=== PATIENT | male | born 1940 | race Caucasian/White ===

== ENCOUNTER 2022-02-12 12:35 | Emergency (ER) | payer MEDICARE, BC ==
--- NOTE | 2022-02-12 12:40 | ERPHSYRPT ---
- History of Present Illness Time Seen by Provider: 02/12/22 12:40 Source: patient Exam Limitations: no limitations Physician History: This is a 81-year-old white male patient of Dr. Cheatham who presents with 5-day history of cough, sore throat and phlegm. He is diabetic. Patient denies chest pain. He denies shortness of breath. He denies abdominal pain. He has had no nausea vomiting or diarrhea. He does present with a temperature of 103.1 F. He has not been exposed to any individuals that he is aware of that have similar symptoms or flulike symptoms. Timing/Duration: day(s) (5) Cough Quality/Degree: mild, productive cough Possible Cause: occasional episodes (Yellow phlegm) Modifying Factors: Improves With: activity Associated Symptoms: fever, cough, sore throat Allergies/Adverse Reactions: Tetracyclines Allergy (Verified 02/12/22 12:53) Travel Risk - International Travel Have you traveled outside of the country in past 3 weeks: No - Coronavirus Screening Are you exhibiting any of the following symptoms?: Yes Symptoms: Fever, Cough: New Onset Close contact with a COVID-19 positive Pt in past 14-21 Days: No - Review of Systems Constitutional: Fever Eyes: No Symptoms Ears, Nose, & Throat: No Symptoms Respiratory: Cough Cardiac: No Symptoms Abdominal/Gastrointestinal: No Symptoms Genitourinary Symptoms: No Symptoms Musculoskeletal: No Symptoms Skin: No Symptoms Neurological: No Symptoms Psychological: No Symptoms Endocrine: No Symptoms Hematologic/Lymphatic: No Symptoms Immunological/Allergic: No Symptoms All Other Systems: Reviewed and Negative - Past Medical History Neurological History: No Pertinent History Cardiac History: No Pertinent History Respiratory History: No Pertinent History Endocrine Medical History: Diabetes Type II Musculoskeletal History: No Pertinent History - Nursing Vital Signs Nursing Vital Signs: Initial Vital Signs Temperature 103.1 F 02/12/22 12:56 Pulse Rate 118 H 02/12/22 12:56 Respiratory Rate 18 02/12/22 12:56 Blood Pressure 147/88 02/12/22 12:56 O2 Sat by Pulse Oximetry 94 L 02/12/22 12:56 Pain Scale Pain Intensity 0 - Physical Exam General Appearance: no apparent distress, alert Eye Exam: PERRL/EOMI, eyes nml inspection Ears, Nose, Throat Exam: normal ENT inspection, moist mucous membranes Neck Exam: normal inspection, non-tender, supple, full range of motion Respiratory Exam: normal breath sounds, lungs clear, airway intact, No chest tenderness, No respiratory distress Cardiovascular Exam: tachycardia Gastrointestinal/Abdomen Exam: soft, normal bowel sounds, No tenderness Rectal Exam: not done Back Exam: normal inspection, normal range of motion, No CVA tenderness, No vertebral tenderness Extremity Exam: normal inspection, normal range of motion, pelvis stable Neurologic Exam: alert, oriented x 3, cooperative, lockstitch lining setter II-XII nml as tested, normal mood/affect, nml cerebellar function, nml station & gait, sensation nml Skin Exam: normal color, warm, dry Lymphatic Exam: No adenopathy SpO2 Interpretation: borderline oxygenation O2 Delivery: Room Air - Course Nursing assessment & vital signs reviewed: Yes Ordered Tests: Active Orders 24 hr Category Date Time Status Oil Well Service Operator STAT Care 02/12/22 13:46 Active IV Insertion STAT Care 02/12/22 13:45 Active Pulse Oximetry (ED) STAT Care 02/12/22 13:45 Active CHEST 1 VIEW (PORTABLE) Stat Exams 02/12/22 13:15 Completed BLOOD CULTURE Stat Lab 02/12/22 14:40 Received CBC W DIFF Stat Lab 02/12/22 14:10 Completed CMP Stat Lab 02/12/22 14:10 Completed Lactic Acid Stat Lab 02/12/22 13:45 Completed Holt Screen Stat Lab 02/12/22 14:10 Received Medication Summary Generic Name Dose Route Start Last Admin Trade Name Freq PRN Reason Stop Dose Admin Sodium Chloride 1,000 mls @ 100 mls/hr 02/12/22 13:45 02/12/22 13:53 Sodium Chloride 0.9% 1000 Ml IV 03/14/22 13:44 100 mls/hr .Q10H QIAN Administration Discontinued Medications Generic Name Dose Route Start Last Admin Trade Name Freq PRN Reason Stop Dose Admin Acetaminophen 650 mg 02/12/22 13:45 02/12/22 13:53 Acetaminophen 325 Mg Tablet PO 02/12/22 13:46 650 mg STAT STA Administration Acetaminophen Confirm 02/12/22 13:51 Acetaminophen 325 Mg Tablet Administered 02/12/22 13:52 Dose 975 mg .ROUTE .STK-MED ONE Hydrocodone Bitart/Acetaminophen 10 ml 02/12/22 14:00 02/12/22 14:22 Hydrocodone/Acetaminophen 5 Ml Udcup PO 02/12/22 14:01 10 ml STAT STA Administration Hydrocodone Bitart/Acetaminophen Confirm 02/12/22 14:21 Hydrocodone/Acetaminophen 5 Ml Udcup Administered 02/12/22 14:22 Dose 10 ml .ROUTE .STK-MED ONE Methylprednisolone Sodium 0 mg 02/12/22 14:02 02/12/22 14:22 Succinate 125 mg/ Sterile IV 02/12/22 14:03 125 mg Water 2 ml STAT ONE Administration Methylprednisolone Sodium Succinate Confirm 02/12/22 14:22 Methylprednis Sod Succ 125 Mg/2 Ml Vial Administered 02/12/22 14:23 Dose 125 mg .ROUTE .STK-MED ONE Lab/Rad Data: Laboratory Result Diagrams 02/12/22 14:10 02/12/22 14:10 Laboratory Results 02/12/22 02/12/22 02/12/22 Range/Units 14:30 14:10 14:10 WBC 8.6 (4.0-10.5) K/mm3 RBC 3.85 L (4.1-5.6) M/mm3 Hgb 12.0 L (12.5-18.0) gm/dl Hct 37.4 L (42-50) % MCV 97.1 (78-100) fl MCH 31.2 (26-32) pg MCHC 32.1 (32-36) g/dl RDW 14.3 H (11.5-14.0) % Plt Count 272 (150-450) K/mm3 MPV 9.4 (7.5-11.0) fl Gran % 80.5 H (36.0-66.0) % Eos # (Auto) 0.05 (0-0.5) Absolute Lymphs (auto) 0.86 L (1.0-4.6) Absolute Monos (auto) 0.72 (0.0-1.3) Lymphocytes % 10.0 L (24.0-44.0) % Monocytes % 8.4 (0.0-12.0) % Eosinophils % 0.6 (0.00-5.0) % Basophils % 0.5 (0.0-0.4) % Absolute Granulocytes 6.95 H (1.4-6.9) Basophils # 0.04 (0-0.4) Sodium 139 (137-145) mmol/L Potassium 4.3 (3.5-5.1) mmol/L Chloride 104 (98-107) mmol/L Carbon Dioxide 23 (22-30) mmol/L Anion Gap 15.8 H (5-15) MEQ/L BUN 16 (9-20) mg/dL Creatinine 1.22 (0.66-1.25) mg/dL Estimated GFR > 60.0 ML/MIN Glucose 126 H (74-106) mg/dL Lactic Acid (0.4-2.0) Calcium 9.6 (8.4-10.2) mg/dL Total Bilirubin 0.90 (0.2-1.3) mg/dL AST 39 (17-59) U/L ALT 32 (0-50) U/L Alkaline Phosphatase 63 (38-126) U/L Serum Total Protein 6.8 (6.3-8.2) g/dL Albumin 3.9 (3.5-5.0) g/dL Influenza Type A Ag (NEGATIVE) Influenza Type B Ag (NEGATIVE) RSV (PCR) (Negative) SARS-CoV-2 (PCR) (NEGATIVE) Group A Strep Antibody NOT DETECTED (NEGATIVE) 02/12/22 02/12/22 Range/Units 13:45 13:30 WBC (4.0-10.5) K/mm3 RBC (4.1-5.6) M/mm3 Hgb (12.5-18.0) gm/dl Hct (42-50) % MCV (78-100) fl MCH (26-32) pg MCHC (32-36) g/dl RDW (11.5-14.0) % Plt Count (150-450) K/mm3 MPV (7.5-11.0) fl Gran % (36.0-66.0) % Eos # (Auto) (0-0.5) Absolute Lymphs (auto) (1.0-4.6) Absolute Monos (auto) (0.0-1.3) Lymphocytes % (24.0-44.0) % Monocytes % (0.0-12.0) % Eosinophils % (0.00-5.0) % Basophils % (0.0-0.4) % Absolute Granulocytes (1.4-6.9) Basophils # (0-0.4) Sodium (137-145) mmol/L Potassium (3.5-5.1) mmol/L Chloride (98-107) mmol/L Carbon Dioxide (22-30) mmol/L Anion Gap (5-15) MEQ/L BUN (9-20) mg/dL Creatinine (0.66-1.25) mg/dL Estimated GFR ML/MIN Glucose (74-106) mg/dL Lactic Acid 1.4 (0.4-2.0) Calcium (8.4-10.2) mg/dL Total Bilirubin (0.2-1.3) mg/dL AST (17-59) U/L ALT (0-50) U/L Alkaline Phosphatase (38-126) U/L Serum Total Protein (6.3-8.2) g/dL Albumin (3.5-5.0) g/dL Influenza Type A Ag NEGATIVE (NEGATIVE) Influenza Type B Ag NEGATIVE (NEGATIVE) RSV (PCR) NEGATIVE (Negative) SARS-CoV-2 (PCR) NEGATIVE (NEGATIVE) Group A Strep Antibody (NEGATIVE) - Progress Air Movement: good Progress Note: 02/12/22 13:44 Chest x-ray shows no acute cardiopulmonary process. Counseled pt/family regarding: lab results, diagnosis, need for follow-up, rad results - Departure Departure Disposition: Home Clinical Impression: Pharyngitis, Bronchitis Condition: Stable Critical Care Time: No Referrals: JENNIFER CHEATHAM MD [Primary Care Provider] - Follow up/PCP as directed Additional Instructions: Drink plenty of fluids. Take your medication as prescribed. Follow-up with your primary prescribing physician for further management. Prescriptions: Hydrocodone/Acetaminophen [Hydrocodone-Acetamn 7.5-325/15] 10 ml PO Q8H PRN PRN #120 ml MDD 30 ml PRN Reason: Cough Prednisone 10 mg [Deltasone 10 mg] 10 mg PO TID #12 tablet Azithromycin 250 mg [Zithromax 250 MG TABLET] 250 mg PO ZPACK #6 tablet
--- NOTE | 2022-02-12 13:37 | XRAY ---
Indication: Productive cough. Comparison: January 03, 2022. Portable apical lordotic chest unchanged again demonstrating minimal left base atelectasis/scarring. Remaining heart and lungs unremarkable. No new/acute findings.
[2022-02-12] MEDS ORDERED: TYLENOL 325 MG PO STA (13:45)
[2022-02-12] MEDS ORDERED: Sodium Chloride 0.9% 1000 ML 1,000 ML IV SCH (13:45)
[2022-02-12] MEDS ORDERED: TYLENOL 325 MG ONE (13:51)
[2022-02-12] MEDS ORDERED: Sodium Chloride 0.9% 1000 ML 1,000 ML ONE (13:51)
[2022-02-12] MEDS ORDERED: HYDROCODONE-ACETAMIN 2.5-108/5 ML SOLUTION PO STA (14:00)
[2022-02-12] MEDS ORDERED: solu-MEDROL 125 MG, Sterile H2O 10 ml 2 ML IV ONE ×2 (14:02)
[2022-02-12 14:10] LABS: INFLUENZA A NEGATIVE (NEGATIVE); INFLUENZA B NEGATIVE (NEGATIVE); RESPIRATORY SYNCTIAL VIRUS NEGATIVE (Negative); SARS-CoV-2 Xpert Express NEGATIVE (NEGATIVE)
[2022-02-12] MEDS ORDERED: HYDROCODONE-ACETAMIN 2.5-108/5 ML SOLUTION ONE (14:21)
[2022-02-12 14:22] LABS: Absolute Neutrophil Ct (ANC) 6.95 (1.4-6.9); Basophil (Absolute #) 0.04 (0-0.4); Eosinophil % 0.6 % (0.00-5.0); Eosinophil (Absolute #) 0.05 (0-0.5); Hematocrit 37.4 % (42-50); Lymphocyte (Absolute #) 0.86 (1.0-4.6); Mean Cell Volume 97.1 fl (78-100); Mean Corpuscular Hemoglobin 31.2 pg (26-32); Mean Corpuscular Hgb Concent. 32.1 g/dl (32-36); Mean Platelet Volume 9.4 fl (7.5-11.0); Monocyte (Absolute #) 0.72 (0.0-1.3); Monocytes % 8.4 % (0.0-12.0); Neutrophil % 80.5 % (36.0-66.0); Platelet Count 272 K/mm3 (150-450); Red Blood Count 3.85 M/mm3 (4.1-5.6); Red Cell Distribution Width 14.3 % (11.5-14.0); White Blood Count 8.6 K/mm3 (4.0-10.5)
[2022-02-12] MEDS ORDERED: solu-MEDROL ONE (14:22)
[2022-02-12 14:32] LABS: ALBUMIN 3.9 g/dL (3.5-5.0); ALKALINE PHOSPHATASE 63 U/L (38-126); ANION GAP 15.8 MEQ/L (5-15); BLOOD UREA NITROGEN 16 mg/dL (9-20); CHLORIDE 104 mmol/L (98-107); Calcium 9.6 mg/dL (8.4-10.2); Carbon Dioxide 23 mmol/L (22-30); Creatinine 1 1.22 mg/dL (0.66-1.25); EST GLOMERULAR FILTRATION RATE > 60.0 ML/MIN; Glucose 126 mg/dL (74-106); Potassium 4.3 mmol/L (3.5-5.1); SGOT/AST 39 U/L (17-59); SGPT/ALT 32 U/L (0-50); SODIUM 139 mmol/L (137-145); Total Protein 6.8 g/dL (6.3-8.2)
[2022-02-12] MEDS ORDERED: ROCEPHIN 1 Gm-D5w 50 ml Bag** 1 G/50 ML IVPB IV STA (15:41)
[2022-02-12] MEDS ORDERED: ROCEPHIN 1 Gm-D5w 50 ml Bag** 1 G/50 ML IVPB IV ONE (15:56)
[2022-02-12 16:12] VITALS: BP 121/67; PULSE 78; O2SAT 98
== END 2022-02-12 16:12 | disposition home or self-care (01) ==
LOC: ED 12:35
DX: J40 Bronchitis, not specified as acute or chronic (principal); J02.9 Acute pharyngitis, unspecified; R05.1 Acute cough; R50.9 Fever, unspecified; E11.9 Type 2 diabetes mellitus without complications; Z79.891 Long term (current) use of opiate analgesic; Z79.52 Long term (current) use of systemic steroids
CPT/HCPCS: 0241U; 36000; 36415; 71045; 80053; 83605; 85025; 86308; 87040; 87651; 93041; 94760; 96365; 96374; 99284; J0696; J2930; A9270-GY

== ENCOUNTER 2023-12-02 07:27 | Day surgery (SDC) | payer MEDICARE, BC ==
[2023-12-02] MEDS ORDERED: Depo-Medrol 40 MG/ML IM ONE (07:28)
[2023-12-02] MEDS ORDERED: XYLOCAINE-MPF 1% 5ML SDV IJ ONE (07:28)
[2023-12-02] MEDS ORDERED: Sodium Chloride 0.9(Preservative Free) 10 ML IJ ONE (07:28)
[2023-12-02] MEDS ORDERED: DIPRIVAN 200 MG/20 ML IV ONE (09:02)
[2023-12-02] MEDS ORDERED: Lactated Ringers 1,000 ML IV ONE (09:34)
--- NOTE | 2023-12-02 11:28 | XRAY ---
Indication: Lumbar GERRY. Intraoperative fluoroscopy provided for 24 seconds. 2 digital spot images submitted for interpretation demonstrates posterior needle tip projecting posterior to lumbosacral junction interspace. Small amount of contrast injected for needle tip placement. Correlate with intraoperative findings/report.
--- NOTE | 2023-12-02 11:46 | XRAY ---
24 seconds of fluoroscopy was used in surgery for a lumbar GERRY.
== END 2023-12-02 09:31 | disposition home or self-care (01) ==
LOC: SDC-PAIN 07:27
PROVIDERS: ATTEND Psychiatry & Neurology Pain Medicine
DX: M54.16 Radiculopathy, lumbar region (principal); E11.9 Type 2 diabetes mellitus without complications
CPT/HCPCS: 62321; 72100; 77003; 82947; J1030; J2704; Q9966

== ENCOUNTER 2024-10-22 10:02 | Emergency (ER) | payer MEDICARE, BC ==
[2024-10-22 11:39] VITALS: RESP 18; TEMP 98.4
--- NOTE | 2024-10-22 12:52 | ERPHSYRPT ---
- History of Present Illness Time Seen by Provider: 10/22/24 10:41 Source: patient, family Exam Limitations: no limitations Patient Subjective Stated Complaint: . Triage Nursing Assessment: . Physician History: 84 years old male fairly healthy taking aspirin off and on, issues with balance presented in the ER when he tripped, lost his balance and hit the edge of the table earlier today. Patient reports increased swelling on the medial side of left lower leg and hurts to put pressure. No distal numbness tingling or weakness. No difficulty movements of ankle/foot. Not taking any blood thinners.No injury anywhere else. No skin break. Allergies/Adverse Reactions: Tetracyclines Allergy (Verified 10/22/24 11:37) Hx Influenza Vaccination/Date Given: No Hx Pneumococcal Vaccination/Date Given: Yes Travel Risk - International Travel Have you traveled outside of the country in past 3 weeks: No - Emerging Infectious Disease Are you exhibiting symptoms associated with any current EIDs: No - Review of Systems Constitutional: No Symptoms Ears, Nose, & Throat: No Symptoms Respiratory: No Symptoms Cardiac: No Symptoms Abdominal/Gastrointestinal: No Symptoms Musculoskeletal: Fall, Injury Skin: No Symptoms Neurological: No Symptoms Endocrine: No Symptoms - Past Medical History Pertinent Past Medical History: Yes Neurological History: No Pertinent History Cardiac History: No Pertinent History Respiratory History: COPD Endocrine Medical History: Diabetes Type II Musculoskeletal History: No Pertinent History - Past Surgical History Past Surgical History: Yes Gastrointestinal: Appendectomy - Social History Smoking Status: Former smoker Exposure to second hand smoke: No Drug Use: none Patient Lives Alone: No - Social Determinants of Health Will the patient participate in the screening: Declined to provide - Nursing Vital Signs Nursing Vital Signs: Initial Vital Signs Temperature 98.4 F 10/22/24 11:38 Pulse Rate 87 10/22/24 11:38 Respiratory Rate 18 10/22/24 11:38 Blood Pressure 143/82 10/22/24 11:38 O2 Sat by Pulse Oximetry 99 10/22/24 11:38 Pain Scale Pain Intensity 4 - Sergio Coma Score Best Eye Response ([place]): (4) open spontaneously Best Verbal Response ([place]): (5) oriented Best Motor Response ([place]): (6) obeys commands [place] Total: 15 - Physical Exam General Appearance: no apparent distress Head Injury: no evidence of injury Eye Exam: PERRL/EOMI ENT Exam: airway nml, No evidence of ENT injury, No dental injury Neck Exam: supple, trachea midline, full range of motion Respiratory/Chest Exam: normal breath sounds, respiratory distress Cardiovascular Exam: normal heart sounds, regular rate/rhythm Extremity Exam: normal range of motion, pelvis stable, swelling (Left lower leg medial aspect hematoma 7/7 cm. Soft to firm consistency. Mild tenderness. No osseous tenderness.), tenderness Neurologic Exam: alert, oriented x 3, cooperative Skin Exam: normal color SpO2 Interpretation: normal SpO2: 96 O2 Delivery: Room Air Ordered Tests: Active Orders 24 hr Category Date Time Status LOWER LEG Stat Exams 10/22/24 11:49 Completed - Progress Progress: improved Progress Note: 10/22/24 14:20 84 years old is evaluated in the ER for injury to the left leg. Patient has a small hematoma. No obvious bony tenderness. X-rays are negative for fracture dislocation. X-rays did show a small area of calcification. I have ordered CT but patient later on reported that he knew about the calcification he has it after lawnmowing injury. He does not want CT done. He is advised to have outpatient follow-up with orthopedics for reevaluation and possible removal as it is in the left anterior mid berry area subcutaneously. Patient's symptoms are more on the medial side of the calf. We will do Juan wrap. Recommended Tylenol ice, weightbearing as tolerated and outpatient follow-up. Discussed signs symptoms of worsening needing return to ER which he seems understanding. Stable for discharge. Counseled pt/family regarding: diagnosis, need for follow-up, rad results Medical Desision Making - Independent Historian Additional History obtained from: Spouse - Diagnostic Testing Diagnostic test were ordered, analyzed, and reviewed by me: Yes Radiological Interpretation: Reviewed by me, Teleradiologist Report - Departure Departure Disposition: Home Clinical Impression: Hematoma of lower leg, Fall Condition: Stable Critical Care Time: No Referrals: JENNIFER CHEATHAM MD [Primary Care Provider] - Follow up with PCP 1 day NATHAN BERNAL MD [ACTIVE STAFF] - Follow up/PCP as directed (call for appointment ) Instructions: Preventing falls in adults Additional Instructions: Intermittent ice application. Take Tylenol as needed. Weightbearing as tolerated. Use cane/walker for ambulation to avoid a fall. Follow-up with [facility] and orthopedics for reevaluation of this hematoma and also for calcification in the left leg. Return to ER for worsening pain swelling or difficulty ambulation etc.
--- NOTE | 2024-10-22 13:58 | XRAY ---
CLINICAL HISTORY: swelling/fall COMPARISON: None. TECHNIQUE: X-ray left tibia and fibula, 2 views: AP (Anteroposterior) and lateral projections. FINDINGS: Bone: The visualized tibia and fibula are intact. No evidence of fracture or dislocation. No focal bone lesions are identified. Plantar calcaneal spur noted. Soft Tissue: Irregular, maturely ossified/calcified lesion noted adjacent to tibia and fibula at mid-leg with a heterogeneous appearance. IMPRESSION: A large ossified structure anterior to the tibia noted at mid-leg. Differential diagnosis includes myositis ossificans, heterotopic ossification, osteochondroma; further assessment with CT/MRI is advised. Disclaimer: A subtle bone abnormality or fracture may not be readily apparent on X-rays, thus clinical correlation and further imaging including follow-up CT, MRI, or follow-up X-rays are advised as needed. Electronically Signed by: Lulú Monroy MD. (10/22/2024 13:53:31 EST)
[2024-10-22 14:12] VITALS: PULSE 82
[2024-10-22 14:23] VITALS: O2SAT 96
[2024-10-22 14:33] VITALS: BP 169/96
== END 2024-10-22 14:33 | disposition home or self-care (01) ==
LOC: ED 10:02
DX: S80.12XA Contusion of left lower leg, initial encounter (principal); W19.XXXA Unspecified fall, initial encounter
CPT/HCPCS: 73590; 99282; 99283

== ENCOUNTER 2024-11-23 10:06 | Day surgery (SDC) | payer MEDICARE, BC ==
[~2024-11-23 10:06] MED LIST: Marcaine Mpf 0.5% Vial 30 Ml ONE; Xylocaine 1% Vial 30 ML PF IJ ONE
[2024-11-23] MEDS ORDERED: CEFAZOLIN 2 GM/100 ML NaCl 2 GM/100 ML IVPB IV ONE (10:18)
[2024-11-23] MEDS ORDERED: Lactated Ringers 1,000 ML IV ONE (10:18)
[2024-11-23] MEDS: Lactated Ringers 1,000 ML IV SCH (10:25)
[2024-11-23] MEDS: CEFAZOLIN 2 GM/100 ML NaCl 2 GM/100 ML IVPB IV SCH (10:25)
[2024-11-23 10:34] VITALS: RESP 16; O2SAT 97
[2024-11-23 10:37] LABS: Hematocrit 37.5 % (40.1-51.0); Hemoglobin 12.1 g/dL (13.7-17.5); Mean Cell Volume 94.2 fL (79.0-92.2); Mean Corpuscular Hemoglobin 30.4 pg (25.7-32.2); Mean Corpuscular Hgb Concent. 32.3 g/dL (32.3-36.5); Platelet Count 304 x10^3/uL (163-337); Red Blood Count 3.98 x10^6/uL (4.63-6.08); Red Cell Distribution Width 13.5 % (11.6-14.4); White Blood Count 5.6 x10^3/uL (4.23-9.07)
[2024-11-23 10:51] LABS: ALBUMIN 4.5 g/dL (3.5-5.0); BILIRUBIN,TOTAL 0.6 mg/dL (0.2-1.3); Creatinine 1 1.28 mg/dL (0.66-1.25); EST GLOMERULAR FILTRATION RATE 55.9 ML/MIN; Potassium 4.5 mmol/L (3.5-5.1); Total Protein 7.4 g/dL (6.3-8.2)
[2024-11-23] MEDS ORDERED: propofoL IV ONE (11:29)
[2024-11-23] MEDS ORDERED: Xylocaine-Mpf 2% 5 Ml Vial ONE (11:35)
[2024-11-23] MEDS ORDERED: Amidate 20 MG/10 ML IV ONE (11:35)
[2024-11-23] MEDS ORDERED: Zofran 4 MG/2 ML VIAL ONE (11:35)
[2024-11-23] MEDS ORDERED: dexAMETHasone sodium phosphate ONE (11:35)
[2024-11-23] MEDS ORDERED: SUBLIMAZE 100 MCG/2 ML ONE (11:36)
[2024-11-23 13:33] VITALS: BP 127/77; PULSE 77; TEMP 97.2
--- NOTE | 2024-11-24 13:34 | OP ---
SURGERY DATE/TIME: 11/23/24 [id number] PREOPERATIVE DIAGNOSES: 1) Traumatic hematoma to the left lower extremity. 2) Left leg pain. POSTOPERATIVE DIAGNOSES: 1) Traumatic hematoma to the left lower extremity. 2) Left leg pain. PROCEDURE: Incision and drainage with debridement and irrigation of hematoma. SURGEON: Jere Bartlett MD. PIPING ENGINEER: None. ANESTHESIA: General. HEMOSTASIS: Pressure dressing. ESTIMATED BLOOD LOSS: Approximately 30 mL. MATERIALS: 4-0 Monocryl, 3-0 nylon. INJECTABLES: See anesthesia report for details. INDICATIONS FOR PROCEDURE: The patient is a very pleasant, 84-year-old male, who approximately around the time of suffered a traumatic injury to the soft tissue of his left leg. Since then, he has noticed some swelling to the leg, however, did not think much of it. Patient presented to his primary care and this was assessed. There were some indications of some skin necrosing and potentially a hematoma underneath the surface of the skin. Patient was met in clinic and assessed. An MRI was obtained, demonstrating an 11 cm x 6 cm x 3 cm hematoma to the level of the muscle and patient was scheduled for surgery before the skin necrosed. Patient has been made aware of all risks, complications and benefits of surgical intervention at this time, including but not limited to infection, hematoma, seroma, possibility of delayed wound healing, non-wound healing and possible need for further surgical intervention at a later date. No guarantees were provided as to the outcome of surgical outcome. Plenty of time was allowed for the patient to ask questions, which were answered to his apparent satisfaction. At this time, patient was willing to proceed. DESCRIPTION OF PROCEDURE AND FINDINGS: Patient was brought into the operating room, placed on the operating room table in the supine position. At this time, general anesthesia was administered until the patient was adequately sedated. The left lower extremity was prepped and draped in the typical sterile fashion and lowered onto the surgical field. At this point, a small linear incision was made in a longitudinal fashion approximately 2 cm in length at the distal aspect of the hematoma. At this time, this was carried down through layered dissection to the level of where a small amount of clot was appreciated. Compression was utilized to hand express the hematoma out, expressing approximately 15 to 25 mL of clotted hematoma. There were no signs of active bleeding. At this time, irrigation was utilized to flush out the site, and a Yankauer suction device was inserted into the deficit, removing all of the remaining clot. Hardened clot that was adhered to the fascial layer was left. Irrigation was once again performed and this was sucked out utilizing suction with the Yankauer. From that standpoint, a 4-0 Monocryl and 3-0 nylon was utilized to coapt the subcutaneous skin edges in a layered-type fashion. Following this, a multilayered compression dressing consisting of iodine, Adaptic, 4 x 4, Kerlix, ABD and Coban was applied to the patient's left lower extremity. Patient was then reversed from anesthesia and returned to the postoperative anesthesia care unit with vital signs stable with vascular status intact. Patient handled the anesthesia, as well as the procedure, without significant complication. Postoperative orders as indicated in the patient's discharge chart.
== END 2024-11-23 13:52 | disposition home or self-care (01) ==
LOC: SDC 10:06
PROVIDERS: ATTEND Podiatrist Foot & Ankle Surgery
DX: S80.12XA Contusion of left lower leg, initial encounter (principal); E11.65 Type 2 diabetes mellitus with hyperglycemia; M79.605 Pain in left leg
CPT/HCPCS: 36415; 80053; 85027; 93005; J0690; J1100; J2405; J2704; J3010